=== PATIENT | male | born 1955 | race Caucasian/White ===

== ENCOUNTER 2019-06-24 23:31 | Emergency (ER) | payer SELFPAY ==
[~2019-06-24] VITALS: Ht 177.8 cm; Wt 115.0 kg
[2019-06-24 23:41] VITALS: BP 119/61
[2019-06-25 02:13] LABS: BASOPHILS % 0.5 % (0.0-2.0); EOSINOPHILS % 1.2 % (0.0-5.0); HEMATOCRIT. 36.5 % (42.0-52.0); HEMOGLOBIN. 12.4 g/dL (14.0-18.0); LYMPHOCYTES % 14.4 % (20.0-50.0); MEAN CORPUSCULAR HEMOGLOBIN 32.5 pg (28.0-32.0); MEAN CORPUSCULAR VOLUME 95.5 fL (80.0-94.0); MEAN PLATELET VOLUME 8.8 fl (7.4-10.4); MONOCYTES % 10.4 % (2.0-8.0); NEUTROPHILS % 73.5 % (40.0-76.0); PLATELET 297 x1000/uL (130-400); RED BLOOD CELL COUNT 3.82 mill/uL (4.7-6.1)
[2019-06-25 02:20] LABS: CHLORIDE 101 mEq/L (98-107)
[2019-06-25 02:24] LABS: ETHANOL BLOOD < 10 mg/dL
== END 2019-06-25 03:10 | disposition left against medical advice (07) ==
LOC: ER 23:31
DX: R60.0 Localized edema (principal); R05 Cough; R06.02 Shortness of breath; M79.672 Pain in left foot; M79.671 Pain in right foot; F17.200 Nicotine dependence, unspecified, uncomplicated; G20 Parkinson's disease
CPT/HCPCS: 36415; 71045; 73630; 80320; 83880; 84484; 99284; G0480